=== PATIENT | female | born 1950 | race Caucasian/White ===

== ENCOUNTER → 2019-11-07 13:56 | Outpatient (CLI) | payer BC ==
[2016-09-28 06:02] VITALS: BMI 28.4
[~2019-11-07 13:56] MED LIST: ARMOUR THYROID60 M1 PO; CALCIUM 600 +1 EAC3; HYDROCODONE-APA1 TAB PO; SUPER B COMPLE150 MG PO; SYNTHROID125 MCG PO; TAPAZOLE 5 MG TA5 MG; VITAMIN D31000 UNIT PO
== END | disposition home or self-care (01) ==
LOC: D.CT 13:56
PROVIDERS: ATTEND Family Medicine
DX: R91.1 Solitary pulmonary nodule (principal)

== ENCOUNTER → 2020-05-17 15:39 | Outpatient (CLI) | payer BC ==
[2016-09-28 06:02] VITALS: BMI 28.4
== END | disposition home or self-care (01) ==
LOC: D.LAB 15:39
PROVIDERS: ATTEND Internal Medicine Pulmonary Disease
DX: Z11.59 Encounter for screening for other viral diseases (principal)

== ENCOUNTER → 2020-05-20 14:07 | Outpatient (CLI) | payer BC ==
[2016-09-28 06:02] VITALS: BMI 28.4
== END | disposition home or self-care (01) ==
LOC: D.RT 14:07
PROVIDERS: ATTEND Internal Medicine Pulmonary Disease
DX: R91.1 Solitary pulmonary nodule (principal)

== ENCOUNTER → 2020-05-27 00:30 | Outpatient (CLI) | payer BC ==
[2016-09-28 06:02] VITALS: BMI 28.4
== END | disposition home or self-care (01) ==
LOC: D.LABREF 00:30
PROVIDERS: ATTEND Internal Medicine Pulmonary Disease
DX: E88.01 Alpha-1-antitrypsin deficiency (principal)

== ENCOUNTER 2020-06-04 07:42 | Day surgery (SDC) | payer BC ==
[~2020-06-04] VITALS: Ht 160 cm; Wt 75.0 kg
[2020-06-04 08:04] LABS: BASOPHILS 0.2 % (0-2); EOSINOPHILS 2.2 % (0-7); HEMATOCRIT 38.2 % (36.0-48.0); HEMOGLOBIN 12.1 g/dL (12-16); IMMATURE GRANULOCYTES 0.4 % (0-5); LYMPHOCYTES 33.6 % (15-50); MCH 27.8 pg (26.0-34.0); MCHC 31.7 g/dL (31.0-37.0); MCV 87.8 fL (80.0-100.0); MEAN PLATELET VOLUME 9.8 fL (7.4-10.4); NEUTROPHILS 51.6 % (40-80); PLATELET COUNT 272 10x3/uL (130-400); RBC 4.35 10x6/uL (4.00-5.40); RDW 15.4 % (11.5-14.5); WBC 5.1 10x3/uL (4.8-10.8)
[2020-06-04 08:09] LABS: ANION GAP 7.9 mmol/L (8-16); CARBON DIOXIDE 30.9 mmol/L (21.0-32.0); POTASSIUM - SERUM 3.8 mmol/L (3.5-5.1)
[2020-06-04 08:21] LABS: APTT 26.8 SECONDS (22.8-39.4); PROTIME 13.1 SECONDS (11.6-15.0)
[2020-06-04] MEDS ORDERED: LOPRESSOR25 MG PO (09:21)
[2020-06-04] MEDS ORDERED: OMEPRAZOLE20 M1 PO (09:22)
[2020-06-04 09:32] VITALS: BP 110/86; Ht 160 cm; Wt 75.0 kg
--- NOTE | 2020-06-04 18:57 | NUR ---
1130 ARRIVED TO ROOM REPORT GIVEN FROM IR, PT AWAKE. INSTRUCTED ON POST OP ORDERS. 1245 FREQUENT VS DONE. 1315 PT ASLEEP AND O2 SATS DROPPED TO 87. O2 2 LITERS APPLIED. SATS RETURN TO 98. 1445 IV REMOVED AND PRESSURE HELD. INSTRUCTIONS GIVEN
== END 2020-06-04 15:05 | disposition home or self-care (01) ==
LOC: D.SP 07:42 → D.CT 06-07 10:00 → D.SP 06-07 10:00
PROVIDERS: Radiology Diagnostic Radiology; ATTEND Internal Medicine Pulmonary Disease
DX: R91.1 Solitary pulmonary nodule (principal); J44.9 Chronic obstructive pulmonary disease, unspecified; J30.9 Allergic rhinitis, unspecified; Z87.01 Personal history of pneumonia (recurrent); E04.9 Nontoxic goiter, unspecified; E88.01 Alpha-1-antitrypsin deficiency; Z87.891 Personal history of nicotine dependence; R09.1 Pleurisy

== ENCOUNTER → 2020-06-24 08:27 | Outpatient (CLI) | payer BC ==
[2020-06-04 09:32] VITALS: BMI 29.2
[~2020-06-24 08:27] MED LIST changes: +LOPRESSOR25 MG PO; +OMEPRAZOLE20 M1 PO
== END | disposition home or self-care (01) ==
LOC: D.RT 08:27 → D.US 09:30 → D.ECHO 10:35
PROVIDERS: ATTEND Internal Medicine Cardiovascular Disease
DX: C34.90 Malignant neoplasm of unspecified part of unspecified bronchus or lung (principal)

== ENCOUNTER 2020-07-21 12:13 | Inpatient (IN) | payer MEDICARE, BC ==
[~2020-07-21] VITALS: Ht 160 cm; Wt 78.7 kg
[2020-07-21 13:01] LABS: HEMATOCRIT 37.8 % (36.0-48.0); HEMOGLOBIN 12.3 g/dL (12-16); MCHC 32.5 g/dL (31.0-37.0); MCV 89.2 fL (80.0-100.0); MEAN PLATELET VOLUME 9.6 fL (7.4-10.4); RBC 4.24 10x6/uL (4.00-5.40); RDW 14.5 % (11.5-14.5); WBC 5.4 10x3/uL (4.8-10.8)
[2020-07-21 13:08] LABS: BILIRUBIN NEGATIVE (NEGATIVE); KETONE NEGATIVE (NEGATIVE); NITRITE NEGATIVE (NEGATIVE); UROBILINOGEN NORMAL mg/dL (< 2)
[2020-07-21 13:13] LABS: APTT 26.9 SECONDS (22.8-39.4); INR 1.04 (0.85-1.17); PROTIME 13.5 SECONDS (11.6-15.0)
[2020-07-21 13:16] LABS: ALBUMIN 3.7 g/dL (3.4-5.0); ANION GAP 9.1 mmol/L (8-16); BILIRUBIN - TOTAL 0.19 mg/dL (0.2-1.3); CALCIUM 8.6 mg/dL (8.5-10.1); CARBON DIOXIDE 29.7 mmol/L (21.0-32.0); CREATININE - SERUM 0.9 mg/dL (0.6-1.3); POTASSIUM - SERUM 3.8 mmol/L (3.5-5.1); PROTEIN - SERUM 7.3 g/dL (6.4-8.2)
[2020-07-23] VITALS (17 sets, daily range): BP systolic 98–147; BP diastolic 43–48; Ht 160 cm; Wt 78.7 kg
--- NOTE | 2020-07-23 18:59 | NUR ---
1630-PER FLOW SHEET-SON AT BEDSIDE- 2851-DR BAUMANN AT BEDSIDE TO ASSESS EPIDURAL PAIN MANAGEMENT
[2020-07-24] VITALS (18 sets, daily range): BP systolic 83–143; BP diastolic 44–59
[2020-07-24 07:14] LABS: ALBUMIN 3.1 g/dL (3.4-5.0); ALKALINE PHOSPHATASE 58 U/L (30-120); ALT (SGPT) 28 U/L (10-68); BASOPHILS 0.1 % (0-2); BILIRUBIN - TOTAL 0.36 mg/dL (0.2-1.3); CALC OSMOLALITY 275 mosm/kg (275-300); CALCIUM 7.8 mg/dL (8.5-10.1); CARBON DIOXIDE 26.2 mmol/L (21.0-32.0); CHLORIDE - SERUM 104 mmol/L (98-107); CREATININE - SERUM 0.8 mg/dL (0.6-1.3); EOSINOPHILS 0 % (0-7); GLUCOSE 122 mg/dL (74-106); HEMATOCRIT 32.9 % (36.0-48.0); HEMOGLOBIN 10.6 g/dL (12-16); IMMATURE GRANULOCYTES 0.2 % (0-5); LYMPHOCYTES 13.4 % (15-50); MCH 28.6 pg (26.0-34.0); MCHC 32.2 g/dL (31.0-37.0); MCV 88.7 fL (80.0-100.0); MONOCYTES 10.6 % (2-11); NEUTROPHILS 75.7 % (40-80); PLATELET COUNT 225 10x3/uL (130-400); POTASSIUM - SERUM 3.5 mmol/L (3.5-5.1); PROTEIN - SERUM 6.3 g/dL (6.4-8.2); RBC 3.71 10x6/uL (4.00-5.40); RDW 14.9 % (11.5-14.5); SODIUM 138 mmol/L (136-145); UREA NITROGEN 11 mg/dL (7-18); WBC 11.3 10x3/uL (4.8-10.8); eGFR NON AFRICAN AMERICAN 75 mL/min (90-120)
--- NOTE | 2020-07-24 09:50 | OP ---
PATIENT NAME: REFUGIO GILL MEDICAL RECORD: [id number] :52 LOCATION:[facility] ADMISSION DATE:07/23/20 SURGEON: HI SALINAS MD DATE OF OPERATION: 07/23/2020 SURGEON: Hi Salinas MD PROCEDURES PERFORMED: 1. Right mini thoracotomy with extended segmentectomy right upper lobe, mediastinal lymph node dissection. 2. Bronchoscopy. PREOPERATIVE DIAGNOSIS: Non-small cell lung cancer. POSTOPERATIVE DIAGNOSIS: Poorly-differentiated carcinoma, primary not determined by frozen section. ANESTHESIA: Double lumen, general endotracheal anesthesia. ESTIMATED BLOOD LOSS: 5 cc. COMPLICATIONS: None. SPECIMENS: 1. Right upper lobe segment. 2. Five lymph node stations, right paratracheal, azygos, subcarinal, interlobar, hilar. There were no sizable lymph nodes in the inferior pulmonary ligament lymph node station. INDICATION: Adenocarcinoma. OPERATIVE FINDINGS: The mass in the upper lobe extended to the visceral pleura, but not across the fissure or into the chest wall. DESCRIPTION OF PROCEDURE: The patient was brought to the operating suite. Double lumen endotracheal anesthesia was performed. The left lung was ventilated. The patient turned to left lateral decubitus position. Chest was prepped and draped. Posterolateral mini thoracotomy was performed and dissection of the rib was removed. The chest was entered. Cryo at 3 levels was performed for postoperative pain control. The hilum was freed as was the inferior pulmonary ligament. The mass extended to, but not through the visceral pleura. Working from the pulmonary artery, the segmental blood supply was divided. Staple lines were used to divide the lung tissue and later sealed with a sealant. Lymph node dissection was performed. These areas were marked with clips. Hemostasis was ensured. Chest tubes were placed apically and posteriorly. Lung was reinflated. Chest was closed with pericostal sutures, two muscle layers, subcutaneous and subcuticular. The patient is stable to ICU. TRANSINT:[id number] Voice Confirmation ID: [id number] DOCUMENT ID: [id number] OPERATIVE REPORT [id number] BRIDGETREFUGIO TORRES HI SALINAS MD at 0950 CC: FILI MCDUFFIE MD [id number] DICTATION DATE: 07/23/20 1526 ELECTRIC RANGE ASSEMBLER: 07/23/20 0317 ADM IN [facility] [address] [id number]
--- NOTE | 2020-07-24 18:30 | NUR ---
1000-DR SALINAS AT BEDSIDE-CHEST TUBE PLACED TO WATERSEAL DIRECTED-NO AIRLEAK AT THIS TIME 1200-DR AMES AT BEDSIDE-REVIEWED EPIDURAL-AND ADJUSTED 1530-C/O OF "ANTS ALL OVER ME"-STATED MEANS ITCHING-DR AMES NOTIFIED OF SAME- 1600-BENADRYL 25MG PO GIVEN ORDERED 1610-DANGLED AT BEDSIDE ORDERED-TOLERATED WELL BY PT-ENCOURAGED USE OF EPIDURAL DETAILER-FOR RETURN TO BED-EPIDURAL INTACT-BED REINFLATED 1700-RESTING WELL
[2020-07-25] VITALS (24 sets, daily range): BP systolic 90–144; BP diastolic 38–61
[2020-07-25 06:47] LABS: BASOPHILS 0 % (0-2); EOSINOPHILS 0.2 % (0-7); HEMATOCRIT 31.9 % (36.0-48.0); HEMOGLOBIN 10.2 g/dL (12-16); IMMATURE GRANULOCYTES 0.2 % (0-5); LYMPHOCYTES 13.7 % (15-50); MCH 28.3 pg (26.0-34.0); MCV 88.6 fL (80.0-100.0); MEAN PLATELET VOLUME 10.2 fL (7.4-10.4); MONOCYTES 11.3 % (2-11); NEUTROPHILS 74.6 % (40-80); RDW 14.9 % (11.5-14.5)
[2020-07-25 07:15] LABS: ALBUMIN 2.7 g/dL (3.4-5.0); ALKALINE PHOSPHATASE 55 U/L (30-120); ALT (SGPT) 26 U/L (10-68); BILIRUBIN - TOTAL 0.36 mg/dL (0.2-1.3); CALC OSMOLALITY 275 mosm/kg (275-300); CALCIUM 7.8 mg/dL (8.5-10.1); CARBON DIOXIDE 27.9 mmol/L (21.0-32.0); CHLORIDE - SERUM 106 mmol/L (98-107); CREATININE - SERUM 0.8 mg/dL (0.6-1.3); GLUCOSE 104 mg/dL (74-106); PLATELET COUNT 179 10x3/uL (130-400); POTASSIUM - SERUM 3.2 mmol/L (3.5-5.1); SODIUM 139 mmol/L (136-145); WBC 8.4 10x3/uL (4.8-10.8); eGFR NON AFRICAN AMERICAN 75 mL/min (90-120)
[2020-07-25 07:16] LABS: UREA NITROGEN 6 mg/dL (7-18)
--- NOTE | 2020-07-25 11:24 | NUR ---
DR SALINAS AT [facility] TOLERATED WELL-CHEST TUBE TO WATER SEAL
[2020-07-26] VITALS (21 sets, daily range): BP systolic 95–164; BP diastolic 38–71
[2020-07-26 05:54] LABS: BASOPHILS 0.1 % (0-2); EOSINOPHILS 1.9 % (0-7); HEMATOCRIT 32.9 % (36.0-48.0); HEMOGLOBIN 10.6 g/dL (12-16); IMMATURE GRANULOCYTES 0.4 % (0-5); LYMPHOCYTES 21.5 % (15-50); MCH 28.6 pg (26.0-34.0); MCHC 32.2 g/dL (31.0-37.0); MCV 88.9 fL (80.0-100.0); MEAN PLATELET VOLUME 9.9 fL (7.4-10.4); MONOCYTES 9.4 % (2-11); NEUTROPHILS 66.7 % (40-80); PLATELET COUNT 184 10x3/uL (130-400); RDW 15.4 % (11.5-14.5)
[2020-07-26 06:25] LABS: ALBUMIN 2.4 g/dL (3.4-5.0); ALKALINE PHOSPHATASE 69 U/L (30-120); BILIRUBIN - TOTAL 0.22 mg/dL (0.2-1.3); CALCIUM 7.9 mg/dL (8.5-10.1); CARBON DIOXIDE 27.1 mmol/L (21.0-32.0); CHLORIDE - SERUM 105 mmol/L (98-107); CREATININE - SERUM 0.7 mg/dL (0.6-1.3); GLUCOSE 138 mg/dL (74-106); POTASSIUM - SERUM 3.3 mmol/L (3.5-5.1); PROTEIN - SERUM 6.1 g/dL (6.4-8.2); SODIUM 139 mmol/L (136-145); eGFR NON AFRICAN AMERICAN 88 mL/min (90-120)
[2020-07-26 06:27] LABS: ALT (SGPT) 42 U/L (10-68); CALC OSMOLALITY 277 mosm/kg (275-300); UREA NITROGEN 8 mg/dL (7-18)
--- NOTE | 2020-07-26 08:40 | NUR ---
RIGHT CHEST TUBES X [address] SALINAS. OCCLUSIVE DRESSING APPLIED - BETADINE OINT, STERILE 4X4S AND TEGADERM. TOLERATED WELL. LYING ON LEFT SIDE POST.
--- NOTE | 2020-07-26 10:15 | NUR ---
Nutrition Follow-up: POD 3 thoracotomy/bronch/lymphadenectomy. Good/fair PO intake. Reports eating ~50% of breakfast this AM. Last BM SYNTHETIC STAPLE EXTRUDER; +flatus. Diet: Regular PO intake: 75% avg x 4 meals Wt: 173.1# (07/26) Labs noted: K+ 3.3, Ca 7.9, Alb 2.4 Meds noted: Protonix, KDur -RD following.
--- NOTE | 2020-07-26 12:06 | NUR ---
TYLENOL 650MG GIVEN FOR ELEVATED TEMP OF 100.8 PER PATIENT REQUEST. DANGLE ON BEDSIDE FOR LUNCH MEAL.
--- NOTE | 2020-07-26 13:45 | NUR ---
AWAKE FROM NAPPING. DENIES PAIN. JACINTO CATHETER REMOVED.
--- NOTE | 2020-07-26 14:30 | NUR ---
ASSISTED TO BATHROOM. VOIDED WITHOUT DIFFICULTY. TO RECLINER CHAIR.
[2020-07-27] VITALS (10 sets, daily range): BP systolic 122–146; BP diastolic 37–73
[2020-07-27 05:24] LABS: BASOPHILS 0.2 % (0-2); EOSINOPHILS 3.2 % (0-7); HEMATOCRIT 31.8 % (36.0-48.0); HEMOGLOBIN 10.1 g/dL (12-16); IMMATURE GRANULOCYTES 0.2 % (0-5); LYMPHOCYTES 18.4 % (15-50); MCH 28.2 pg (26.0-34.0); MCHC 31.8 g/dL (31.0-37.0); MCV 88.8 fL (80.0-100.0); MONOCYTES 12.5 % (2-11); NEUTROPHILS 65.5 % (40-80); PLATELET COUNT 214 10x3/uL (130-400); RBC 3.58 10x6/uL (4.00-5.40); RDW 15.7 % (11.5-14.5); WBC 6.5 10x3/uL (4.8-10.8)
[2020-07-27 05:27] LABS: ALBUMIN 2.3 g/dL (3.4-5.0); ALKALINE PHOSPHATASE 68 U/L (30-120); BILIRUBIN - TOTAL 0.27 mg/dL (0.2-1.3); CALC OSMOLALITY 276 mosm/kg (275-300); CALCIUM 8.1 mg/dL (8.5-10.1); CARBON DIOXIDE 26.8 mmol/L (21.0-32.0); CHLORIDE - SERUM 107 mmol/L (98-107); CREATININE - SERUM 0.6 mg/dL (0.6-1.3); GLUCOSE 101 mg/dL (74-106); SODIUM 140 mmol/L (136-145); UREA NITROGEN 8 mg/dL (7-18); eGFR NON AFRICAN AMERICAN > 90 mL/min (90-120)
[2020-07-27 05:37] LABS: ALT (SGPT) 31 U/L (10-68)
--- NOTE | 2020-07-27 07:30 | NUR ---
sitting up in recliner resting, no distress noted, denies pain or needs, breakfast tray served, call light in reach, will monitor
--- NOTE | 2020-07-27 10:15 | NUR ---
DR SALINAS HERE SEEING PATIENT
--- NOTE | 2020-07-27 11:30 | NUR ---
CV[facility] DC'D AT THIS TIME, CATHETER INTACT
--- NOTE | 2020-07-27 12:15 | NUR ---
pt discharged home with family present, discharge instructions given and medications explained, pt verbalizes understanding , no distress noted at this time and pt denies pain
== END 2020-07-27 12:15 | disposition home or self-care (01) | DRG 165 ==
LOC: D.CVICU 07-23 07:25 → D.SDCHOLD 07-23 07:25 → D.CVICU 07-23 13:15
PROVIDERS: ADMIT Thoracic Surgery (Cardiothoracic Vascular Surgery); ATTEND Thoracic Surgery (Cardiothoracic Vascular Surgery)
PROC: 0BBC0ZZ Excision of Right Upper Lung Lobe, Open Approach (ICD-10-PCS; principal; 2020-07-23 10:45)
PROC: 07B70ZX Excision of Thorax Lymphatic, Open Approach, Diagnostic (ICD-10-PCS; 2020-07-23 10:45)
DX: C34.11 Malignant neoplasm of upper lobe, right bronchus or lung (principal); E03.9 Hypothyroidism, unspecified; K21.9 Gastro-esophageal reflux disease without esophagitis; I10 Essential (primary) hypertension; M19.90 Unspecified osteoarthritis, unspecified site; F41.8 Other specified anxiety disorders; H26.9 Unspecified cataract; Z87.891 Personal history of nicotine dependence; E87.6 Hypokalemia; E88.09 Other disorders of plasma-protein metabolism, not elsewhere classified; D64.9 Anemia, unspecified

== ENCOUNTER → 2020-08-04 14:11 | Outpatient (CLI) | payer BC ==
[2020-07-23 16:15] VITALS: BMI 31.4
== END | disposition home or self-care (01) ==
LOC: D.RAD 14:11
PROVIDERS: ATTEND Thoracic Surgery (Cardiothoracic Vascular Surgery)
DX: Z53.32 Thoracoscopic surgical procedure converted to open procedure (principal)